=== PATIENT | male | born 1995 | race Caucasian/White ===

== ENCOUNTER → 2020-04-27 | Outpatient (CLI) | payer OTHER ==
[~2020-04-27] MED LIST: DONNATAL 5 ML5 ML PO; NO HOME MEDICATIONS
== END ==
LOC: COL.LAB 14:50
DX: U07.1 COVID-19 (principal)

== ENCOUNTER 2021-05-02 11:55 | Emergency (ER) | payer OTHER ==
[~2021-05-02] VITALS: Ht 185.4 cm; Wt 106.8 kg
[2021-05-02 14:38] LABS: STREP SCREEN NEGATIVE
[2021-05-02 14:48] LABS: HEMATOCRIT 42.9 % (42.0-52.0); HEMOGLOBIN 14.4 g/dl (13.5-18.0); MEAN CELL VOLUME 89 fl (80.0-100.0); MEAN CORPUSCULAR HEMOGLOBIN 30 pg (27.0-31.0); MEAN CORPUSCULAR HGB CONC 34 g/dl (33.0-37.0); MEAN PLATELET VOLUME 9.6 fl (7.4-10.4); PLATELET COUNT 197 K/mm3 (130-400); REDCELL DISTRIBUTION WIDTH-CV 12.8 % (11.5-14.5)
[2021-05-02 15:19] LABS: BAND 2 % (0-10); BASOPHIL 1 % (0-2); LYMPHOCYTE 6 % (20.0-51.0); METAMYELOCYTE 2 % (0-0); NEUTROPHILS 71 % (42.0-75.2)
[2021-05-02 15:21] LABS: PLATELET ESTIMATE NORMAL (NORMAL)
[2021-05-02] MEDS ORDERED: ZOFRAN ODT4 MG PO (15:23)
[2021-05-02 15:50] VITALS: BP 106/79; PULSE 41; TEMP 98.9
== END 2021-05-02 16:00 | disposition home or self-care (01) ==
LOC: COL.ER 11:55
PROVIDERS: Family Medicine
DX: K52.9 Noninfective gastroenteritis and colitis, unspecified (principal); Z20.822 Contact with and (suspected) exposure to COVID-19
CPT/HCPCS: J2405; J7030